=== PATIENT | female | born 1945 | race Caucasian/White ===

== ENCOUNTER → 2020-01-10 | Outpatient (CLI) | payer MEDICARE ==
[2020-01-10 13:31] LABS: CHLORIDE 104 mmol/L (98-107)
[2020-01-10 13:40] LABS: ALANINE AMINOTRANSFERASE 40 U/L (12-78); ALBUMIN 4.5 g/dL (3.4-5.0); ALKALINE PHOSPHATASE 58 U/L (45-117); ANION GAP 6 mmol/L (5-15); BILIRUBIN,TOTAL 0.5 mg/dL (0.2-1.0); CALCIUM 8.9 mg/dL (8.5-10.1); CHOL/HDL RATIO 3.2; CHOLESTEROL, TOTAL 187 mg/dL (140-239); CREATININE 0.73 mg/dL (0.55-1.02); HDL CHOL % 31 % (28-40); HDL CHOLESTEROL (DIRECT) 58 mg/dL (40-60); LDL CHOLESTEROL,CALCULATED 84 mg/dL (54-169); LDL/HDL RATIO 1.4 (0.5-3.0); TOTAL PROTEIN 7.9 g/dL (6.4-8.2); TRIGLYCERIDES 225 mg/dL (50-200); VLDL CHOLESTEROL 45 mg/dL (0-25)
== END | disposition home or self-care (01) ==
LOC: CFH 11:15
PROVIDERS: ATTEND Family Medicine
DX: I10 Essential (primary) hypertension (principal); R73.09 Other abnormal glucose
CPT/HCPCS: 36415; 80053; 80061; 82043; 83036

== ENCOUNTER 2020-10-12 16:48 | Emergency (ER) | payer MEDICARE ==
[~2020-10-12] VITALS: Ht 162.6 cm; Wt 72.7 kg
--- NOTE | 2020-10-12 17:02 | NUR ---
TASK RN: [facility] FROM HOME AFTER PT HAD "A FEW CHARDONNEY DRINKS" AT 1100 AND STARTED HAVING INCREASED DEPRESSION. PT HAS THOUGHTS SI. ATTEMPTED TO OD ON ADVIL AND XANAX AT 1545. CALLED 911. GIVEN IVF. [facility] TO PLACE PT ON LEGAL HOLD. VS [employer] BP 114/78, BS 125. MONITORS APPLIED. PT PLACED ON 2L NC PT SATING 88% RA. ROOM PARTIALLY SECURED PT IS CURRENTLY MONITORED. SITTER AT BEDSIDE. PERSONAL BELONGINGS BAGS (1 OF 1) PLACED IN SECURE LOCKER.
--- NOTE | 2020-10-12 17:25 | NUR ---
PROVIDER AT BEDSIDE FOR ASSESSMENT. PT'S AT BEDSIDE
[2020-10-12 17:44] LABS: BASOPHILS % (AUTO) 2 % (0-1); EOSINOPHILS % (AUTO) 1 % (1-7); LYMPHOCYTES % (AUTO) 33 % (22-44); MEAN CORPUSCULAR HEMOGLOBIN 32.1 pg (27.0-34.8); MEAN CORPUSCULAR HGB CONC 33.8 g/dL (32.4-35.8); MEAN PLATELET VOLUME 7.9 fL (7.4-10.4); MONOCYTES % (AUTO) 8 % (2-9); NEUTROPHILS % (AUTO) 56 % (42-75); PLATELET COUNT 216 x10^3/uL (130-400); RED BLOOD COUNT 4.54 x10^6/uL (3.82-5.3); RED CELL DISTRIBUTION WIDTH 13.4 % (9.6-15.2)
[2020-10-12 17:54] LABS: ALANINE AMINOTRANSFERASE 22 U/L (12-78); ALBUMIN 4.4 g/dL (3.4-5.0); ANION GAP 10 mmol/L (5-15); CALCIUM 8.3 mg/dL (8.5-10.1); CHLORIDE 110 mmol/L (98-107); CREATININE 0.78 mg/dL (0.55-1.02); SALICYLATE LEVEL < 1.7 mg/dL (2.8-20.0)
[2020-10-12 17:56] LABS: ALKALINE PHOSPHATASE 53 U/L (45-117); BILIRUBIN,TOTAL 0.4 mg/dL (0.2-1.0); TOTAL PROTEIN 6.9 g/dL (6.4-8.2)
[2020-10-12 17:57] LABS: MD NO
--- NOTE | 2020-10-12 18:28 | NUR ---
PT SLEEPING ON GURNEY. VSS. NAD. PTS AT BEDSIDE. WILL CONTINUE TO MONITOR
--- NOTE | 2020-10-12 19:01 | NUR ---
REPORT GIVEN TO MADHURI WILHELM
--- NOTE | 2020-10-12 19:07 | NUR ---
RECEIVED REPORT FROM TUSHAR WILHELM. ASSUMING CARE AT THIS TIME. PT SITTNG ON GURRASHEL. NADN. ROOM SECURE. PT IN SIGHT OF SITTER. AT BEDSIDE.
[2020-10-12 19:15] LABS: AMPHETAMINE SCREEN, URINE Negative (Negative); BARBITURATE SCREEN, URINE Negative (Negative); BENZODIAZEPINE SCREEN, URINE Positive (Negative); CANNABINOID SCREEN, URINE Positive (Negative); COCAINE SCREEN, URINE Negative (Negative); METHADONE SCREEN, URINE Negative (Negative); OPIATE SCREEN, URINE Positive (Negative)
--- NOTE | 2020-10-12 19:20 | NUR ---
ALL RESULTS ARE BACK AT THIS TIME. CHART UP FOR RECHECK.
--- NOTE | 2020-10-12 20:08 | NUR ---
PT TO BE LEGAL HOLD. MD AT BEDSIDE TO UPDATE PT AND ON POC. PT YELLING AT . LEFT ROOM AND PT CALMED DOWN AFTER A COUPLE MINUTES. ROOM SECURE. PT IN SIGHT OF SITTER.
--- NOTE | 2020-10-12 20:09 | NUR ---
REID RN: patient chart to be reviewed by U.
--- NOTE | 2020-10-12 20:13 | NUR ---
SPOKE WITH RB FOR REPORT ON PT.
--- NOTE | 2020-10-12 20:36 | NUR ---
TP RN: [facility] denied patient due to insurance reasons. Packet faxed to [facility], [facility], [facility], [facility], and [facility].
[2020-10-12 21:09] VITALS: BP 123/62
--- NOTE | 2020-10-12 21:19 | NUR ---
TP RN: Justus Orozco at [facility], Dr. Reyes to accept patient at any time.
--- NOTE | 2020-10-12 21:54 | NUR ---
PT AMBULATED TO AMBULANCE WITH STEADY GAIT. [facility] TO DRIVE PT TO [facility]. PT IN STABLE CONDITION.
--- NOTE | 2020-10-12 21:55 | NUR ---
PT 1 BAG BELONGINGS RETURNED AND SENT WITH ELIASSA.
== END 2020-10-12 21:56 ==
LOC: ED 17:27
DX: T14.91XA Suicide attempt, initial encounter (principal); F32.9 Major depressive disorder, single episode, unspecified; X58.XXXA Exposure to other specified factors, initial encounter; Y93.89 Activity, other specified; Y92.89 Other specified places as the place of occurrence of the external cause; Y99.8 Other external cause status
CPT/HCPCS: 36415; 80053; 80299; 80307; 80320; 80329; 85025; 99285; G0480